=== PATIENT | male | born 1965 | race African-American/Black ===

== ENCOUNTER 2025-03-13 07:20 | Inpatient (IN) | payer OTHER ==
[~2025-03-13] VITALS: Ht 185.4 cm; Wt 116.0 kg
[2025-03-13] MEDS ORDERED: OMEP-148 PO (07:45)
[2025-03-13] MEDS ORDERED: FLUT16SP NASAL (07:45)
[2025-03-13] MEDS ORDERED: CHOL25TA4 PO (07:45)
[2025-03-13 07:55] LABS: COVID AG,FIA SOURCE NASAL SWAB
[2025-03-13 08:14] LABS: PLATELET COUNT (AUTO) 141 K/uL (150-450); RED BLOOD CELL COUNT(AUTO) 4.55 MIL/uL (4.50-5.90); RED CELL DISTRIBUTION WIDTH 12.0 % (11.5-14.5); WHITE BLOOD COUNT (AUTO) 5.3 K/uL (4.5-11.0)
[2025-03-13 08:16] LABS: SARS-COV2 (COVID) ANTIGEN,FIA Negative (Negative)
[2025-03-13 08:17] LABS: INFLUENZA TYPE A NEGATIVE FOR TYPE A (NEGATIVE); INFLUENZA TYPE B NEGATIVE FOR TYPE B (NEGATIVE)
[2025-03-13 08:21] LABS: CALCIUM, TOTAL 8.6 mg/dL (8.8-10.5); CREATININE 0.76 mg/dL (0.60-1.30); GLOMERULAR FILTR. RATE CALC > 60 mL/min (>60); GLUCOSE,RANDOM 109 mg/dL (70-110); SODIUM SERUM 140 mmol/L (136-145); UREA NITROGEN, BLOOD 14 mg/dL (7-18)
[2025-03-13] MEDS ORDERED: SODIUM CHLORIDE 0.9% 100 ML ONE ×2 (08:24→11:46)
[2025-03-13] MEDS ORDERED: IOHEXOL 350 MG/ML 100 ML VIAL ONE ×2 (08:24→11:46)
[2025-03-13 08:26] LABS: ASPARTATE AMINOTRANSFERASE 42.0 U/L (15-37); CREATINE KINASE, TOTAL ONLY 135.0 U/L (39-308); TOTAL PROTEIN, SERUM 7.7 g/dL (6.4-8.2)
[2025-03-13 08:30] LABS: TROPONIN I-HIGH SENSITIVITY 4 ng/L (<76)
[2025-03-13] MEDS ORDERED: ONDANSETRON HCL 4 MG/2 ML VIAL IVP PRN (09:00)
[2025-03-13] MEDS: DOCUSATE SODIUM 100 MG CAPSULE PO SCH (09:00)
[2025-03-13] MEDS ORDERED: ACETAMINOPHEN 325 MG TABLET PO PRN (09:00)
[2025-03-13] MEDS: KETOROLAC TROMETHAMINE 30 MG/ML VIAL IVP ONE (09:47)
[2025-03-13 15:25] VITALS: BP 137/78; PULSE 63; RESP 19; TEMP 98.1; O2SAT 99
[2025-03-13] MEDS: HEPARIN SODIUM,PORCINE 5,000 UNITS/ML VIAL SQ SCH (18:27)
[2025-03-13 20:00] VITALS: BP 141/82; PULSE 58; RESP 18; TEMP 98.2; O2SAT 98
[2025-03-13] MEDS: 1: MAGNESIUM SULFATE 2 GM, MVI, ADULT NO.1 WITH VIT K 10 ML, THIAMINE 100 MG, FOLIC ACID IV SCH (21:39)
[2025-03-14] VITALS (10 sets, daily range): BP systolic 127–163; BP diastolic 78–93; PULSE 53–86; RESP 18–20; TEMP 97.7–98.8; O2SAT 96–98
[2025-03-14 07:08] LABS: PLATELET COUNT (AUTO) 139 K/uL (150-450); RED BLOOD CELL COUNT(AUTO) 4.36 MIL/uL (4.50-5.90); RED CELL DISTRIBUTION WIDTH 12.2 % (11.5-14.5); WHITE BLOOD COUNT (AUTO) 4.9 K/uL (4.5-11.0)
[2025-03-14 07:45] LABS: CALCIUM, TOTAL 9.0 mg/dL (8.8-10.5); CREATININE 0.73 mg/dL (0.60-1.30); GLOMERULAR FILTR. RATE CALC > 60 mL/min (>60); GLUCOSE,RANDOM 111 mg/dL (70-110); SODIUM SERUM 138 mmol/L (136-145); UREA NITROGEN, BLOOD 14 mg/dL (7-18)
[2025-03-14] MEDS ORDERED: SODIUM CHLORIDE 0.9% 1,000 ML ONE (08:18)
[2025-03-14] MEDS ORDERED: ALBUTEROL SULFATE 2.5 MG/0.5 ML NEB SOLUTION NEB PRN (13:15)
[2025-03-14] MEDS ORDERED: MAGNESIUM HYDROXIDE SUSPENSION 30 ML UDCUP PO PRN (13:15)
[2025-03-14] MEDS ORDERED: HYDROCODONE/ACETAMINOPHEN 5-325 MG TABLET PO PRN (13:15)
[2025-03-14] MEDS ORDERED: ONDANSETRON HCL 4 MG/2 ML VIAL IVP PRN (13:15)
[2025-03-14] MEDS ORDERED: BISACODYL 10 MG RECTAL RECTAL SUPPOSITORY PR PRN (13:15)
[2025-03-14] MEDS ORDERED: MORPHINE SULFATE 4 MG/ML SYRINGE IVP PRN (13:15)
[2025-03-14] MEDS ORDERED: IPRATROPIUM BROMIDE 0.5 MG/2.5 ML NEB SOLUTION NEB PRN (13:15)
[2025-03-14] MEDS ORDERED: ZOLPIDEM TARTRATE 5 MG TABLET PO PRN (13:15)
[2025-03-14 18:51] LABS: PH,URINE DRUG SCREEN 6.0 (5.0-8.0)
[2025-03-14 19:04] LABS: ALCOHOL, URINE DRUG SCREEN NEGATIVE (NEGATIVE); AMPHET/METH SCREEN,URINE NEGATIVE (NEGATIVE); BARBITURATE SCREEN, URINE NEGATIVE (NEGATIVE); CANNABINOID SCREEN,URINE NEGATIVE (NEGATIVE); COCAINE SCREEN,URINE NEGATIVE (NEGATIVE); METHADONE SCREEN, URINE NEGATIVE (NEGATIVE)
[2025-03-14] MEDS: DOCUSATE SODIUM 100 MG CAPSULE PO SCH (20:33)
[2025-03-15 04:40] VITALS: BP 128/93; PULSE 59; RESP 18; TEMP 97.7; O2SAT 95
[2025-03-15 07:03] LABS: PLATELET COUNT (AUTO) 133 K/uL (150-450); RED BLOOD CELL COUNT(AUTO) 4.23 MIL/uL (4.50-5.90); RED CELL DISTRIBUTION WIDTH 12.2 % (11.5-14.5); WHITE BLOOD COUNT (AUTO) 4.1 K/uL (4.5-11.0)
[2025-03-15 08:03] VITALS: BP 139/81; PULSE 58; RESP 18; TEMP 98; O2SAT 96
[2025-03-15] MEDS: PANTOPRAZOLE SODIUM 40 MG DR TABLET PO SCH (08:32)
[2025-03-15 08:36] VITALS: BP 127/66; PULSE 89; RESP 18; TEMP 98; O2SAT 98
[2025-03-15 10:01] VITALS: BP 127/66; PULSE 89; RESP 18; TEMP 98; O2SAT 98
[2025-03-15 13:22] LABS: CALCIUM, TOTAL 8.6 mg/dL (8.8-10.5); CREATININE 0.69 mg/dL (0.60-1.30); GLOMERULAR FILTR. RATE CALC > 60 mL/min (>60); GLUCOSE,RANDOM 110 mg/dL (70-110); SODIUM SERUM 139 mmol/L (136-145); UREA NITROGEN, BLOOD 10 mg/dL (7-18)
== END 2025-03-15 12:00 | disposition left against medical advice (07) | DRG 48 ==
LOC: EMS 07:23 → EDH 08:57 → 5S 15:05 → 4E 03-14 22:41
PROVIDERS: ADMIT Internal Medicine; ATTEND Internal Medicine
DX: G90.89 Other disorders of autonomic nervous system (principal); K74.60 Unspecified cirrhosis of liver; F10.239 Alcohol dependence with withdrawal, unspecified; Y90.9 Presence of alcohol in blood, level not specified; Z20.822 Contact with and (suspected) exposure to COVID-19; Z53.29 Procedure and treatment not carried out because of patient's decision for other reasons; Z85.46 Personal history of malignant neoplasm of prostate; Z91.199 Patient's noncompliance with other medical treatment and regimen due to unspecified reason
CPT/HCPCS: 71045; 71275; 80048; 80076; 80307; 82550; 83735; 83880; 84443; 84484; 85025; 85379; 87804; 93005; 93306; 96374; 97116; 97162; 97530; 99285; G0378; J1644; J1885; J3411; J3475; J3490; J7030; J7050; 36415-L1; 36415-TC